=== PATIENT | male | born 1955 | race Caucasian/White ===

== ENCOUNTER 2016-06-15 08:50 | Outpatient (CLI) | payer OTHER | END 2016-06-15 08:51 | disposition home or self-care (01) | LOC: BURLAB 08:50 | PROVIDERS: ATTEND Physician Assistant | DX: R50.9 Fever, unspecified (principal) ==

== ENCOUNTER 2019-08-11 09:36 | Emergency (ER) | payer OTHER ==
[2019-08-11] MEDS ORDERED: Adacel (T-DAP) 0.5 ML SYRINGE ONE (09:56)
[2019-08-11] MEDS ORDERED: cefTRIAXone\\ROCEPHIN 1 GM VIAL ONE (10:17)
[2019-08-11] MEDS ORDERED: Sterile Water 100 ML ONE (10:18)
[2019-08-11 10:22] LABS: #Basophils 0.1 thou/uL (0.0-0.2); #Eosinphils 0.1 thou/uL (0.0-0.7); #Lymphocytes 1.4 thou/uL (1.20-3.40); #Monocytes 0.6 thou/uL (0.11-0.59); #Neutrophils 8.6 thou/uL (1.40-6.50); %Basophils 0.9 % (0.0-1.0); %Eosinophils 0.7 % (0.0-10.0); %Lymphocytes 13.3 % (21.0-51.0); %Monocytes 5.3 % (0.0-10.0); %Neutrophils 79.7 % (42.0-75.0); Hemoglobin 15.5 g/dL (14.0-18.0); Mean Corpuscular HGB CONC 32.3 g/dL (32.0-36.0); Mean Corpuscular Hemoglobin 29.9 pg (27.0-31.0); Mean Corpuscular Volume 92.4 fL (78.0-98.0); Mean Platelet Volume 7.4 fL (7.4-10.4); Platelet Count 267 thou/uL (130-400); White Blood Cell (WBC) Count 10.8 thou/uL (4.8-10.8)
[2019-08-11 10:34] LABS: Anion Gap 15 mmol/L (10-20); BUN (Urea Nitrogen) 9 mg/dL (8.4-25.7); Calc. Creatinine Clearance 0 mL/min (70-130); Calcium 9.6 mg/dL (7.8-10.44); Carbon Dioxide 23 mmol/L (23-31); Chloride 105 mmol/L (98-107); Estimated GFR-MDRD Greater than 90; Glucose 138 mg/dL (80-115); Potassium 3.7 mmol/L (3.5-5.1); Sodium 139 mmol/L (136-145)
[2019-08-11] MEDS ORDERED: Acetaminophen 500 MG TAB ONE (11:13)
--- NOTE | 2019-08-11 12:48 | RAD ---
LEFT HAND THREE VIEWS: 08/11/2019 FINDINGS: An acute fracture is seen through the neck of the distal fourth metacarpal. There is very slight palm ar angulation of the metacarpal head. Some bony spurring is seen in the second and third MCP joints a s well as in many of the DIP joints of the fingers. There may have been an old injury to the DIP join t of the ring finger. The carpal bones appear intact but there are substantial arthritic changes in t he first carpometacarpal joint. IMPRESSION: 1. Acute fracture of the distal fourth metacarpal. 2. Arthritic changes as noted above. POS: HOME
== END 2019-08-11 11:16 | disposition home or self-care (01) ==
LOC: BURERS 09:36
DX: S62.335B Displaced fracture of neck of fourth metacarpal bone, left hand, initial encounter for open fracture (principal); Z23 Encounter for immunization; Y04.0XXA Assault by unarmed brawl or fight, initial encounter
CPT/HCPCS: 29125; 80048; 83605; 85025; 87040; 90471; 90715; J0696